=== PATIENT | male | born 1970 | race Caucasian/White ===

== ENCOUNTER 2016-09-10 07:18 | Emergency (ER) | payer BC ==
[2016-09-10] MEDS ORDERED: Sodium Chloride 0.9% 10 ML Syringe FLUSH PRN (07:48)
--- NOTE | 2016-09-10 08:41 | EDM.PDOC ---
ED HPI GENERAL MEDICAL PROBLEM - General Chief Complaint: Neurological Problem Stated Complaint: DIZZY Time Seen by Provider: 09/10/16 07:34 Source of Information: Reports: Patient, RN Notes Reviewed - History of Present Illness INITIAL COMMENTS - FREE TEXT/NARRATIVE: 46-year-old male comes in with generalized weakness and dizziness. This started 3 days ago at work. He feels lightheaded and dizzy and like he is about to pass out at times. He therefore only worked a few hours last Saturday 3 days ago and then went home. He has been resting over the weekend. He has continued to feel weak lightheaded and dizzy when standing or walking. He did go to work today and once again started feeling real lightheaded and dizzy. He therefore comes here for evaluation. No chest pain, occasional shortness of breath, no abdominal pain nausea vomiting or diarrhea. No melena or hematochezia. He does have history of coronary artery disease with CA about 5 years ago and what sounds like 5 vessel bypass. He states he is on multiple medications for his heart and for blood pressure. He has continued to take those medications as previously prescribed. - Related Data Allergies Allergy/AdvReac Type Severity Reaction Status Date / Time No Known Allergies Allergy Verified 09/10/16 07:30 Home Meds: Home Meds Lisinopril 20 mg PO BID #30 tablet 08/07/13 [Rx] amLODIPine [Norvasc] 10 mg PO BEDTIME #15 tab 08/07/13 [Rx] Carvedilol 25 mg PO BID 12/22/15 [History] Clopidogrel [Plavix] 75 mg PO DAILY 12/22/15 [History] Isosorbide Mononitrate [Imdur] 30 mg PO DAILY 12/22/15 [History] Simvastatin [Zocor] 10 mg PO DAILY 12/22/15 [History] metFORMIN [Glucophage XR] 500 mg PO DAILY 12/22/15 [History] Aspirin [Halfprin] 81 mg PO DAILY 09/10/16 [History] Furosemide 20 mg PO BID 09/10/16 [History] Nitroglycerin [Nitrostat] 0.4 mg PO ASDIRECTED PRN 09/10/16 [History] Past Medical History Cardiovascular History: Reports: Bypass, Hypertension, CA Endocrine/Metabolic History: Reports: Diabetes, Type II Social & Family History - Tobacco Use Smoking Status *Q: Former Smoker Used Tobacco, but Quit: Yes Month Tobacco Last Used: june - Caffeine Use Caffeine Use: Reports: None - Alcohol Use Days Per Week of Alcohol Use: 0 - Recreational Drug Use Recreational Drug Use: No Drug Use in Last 12 Months: Yes Recreational Drug Type: Reports: Methamphetamine Recreational Drug Use Frequency: Not Used In Over 6 Months ED ROS GENERAL - Review of Systems Review Of Systems: See Below Constitutional: Denies: Fever, Chills, Diaphoresis HEENT: Denies: Sinus Problem, Throat Pain Respiratory: Reports: Shortness of Breath. Denies: Pleuritic Chest Pain, Cough Cardiovascular: Reports: Lightheadedness. Denies: Chest Pain, Syncope GI/Abdominal: Denies: Abdominal Pain, Diarrhea, Hematochezia, Melena, Nausea, Vomiting : Reports: No Symptoms Musculoskeletal: Reports: No Symptoms Skin: Reports: No Symptoms Neurological: Reports: Dizziness. Denies: Numbness, Tingling ED EXAM, DIZZINESS - Physical Exam Exam: See Below General Appearance: Alert, No Apparent Distress Eye Exam: Bilateral Eye: PERRL Throat/Mouth: Normal Inspection, Normal Oropharynx Head Exam: Atraumatic. No: Facial Swelling Neck: Supple, Full Range of Motion Respiratory/Chest: No Respiratory Distress, Lungs Clear, Normal Breath Sounds Cardiovascular: Regular Rate, Rhythm GI/Abdominal: Soft, Non-Tender. No: Guarding, Rebound Neurological: Alert, No Motor/Sensory Deficits, Oriented x 3 Back Exam: No: CVA Tenderness (L), CVA Tenderness (R) Extremities: Normal Inspection. No: Pedal Edema, Leg Pain Skin Exam: Warm, Dry, Normal Color EKG INTERPRETATION EKG Date: 09/10/16 Rhythm: NSR [place]: Normal P-Wave: Present QRS: Other (Q waves V2, mild ST elevation in V2, mild ST depression V4, 5 and 6) ST-T: Other (T-wave depressed aVL) Course - Vital Signs Last Recorded V/S: Last Vital Signs Temp 97.1 F 09/10/16 07:26 Pulse 70 09/10/16 10:08 Resp 12 09/10/16 07:26 BP 116/70 09/10/16 10:08 Pulse Ox 100 09/10/16 10:08 - Orders/Labs/Meds Orders: Active Orders 24 hr Category Date Time Status EKG 12 Lead [EKG Documentation Completion] [RC] STAT Care 09/10/16 07:49 Active Peripheral IV Care [RC] . DIRECTED Care 09/10/16 07:49 Active Peripheral IV Insertion Adult [OM.PC] Stat Oth 09/10/16 07:49 Ordered Labs: Laboratory Tests 09/10/16 09/10/16 09/10/16 Range/Units 07:38 08:09 08:09 WBC 10.35 H (4.23-9.07) K/mm3 RBC 5.31 (4.63-6.08) M/mm3 Hgb 15.9 (13.7-17.5) gm/L Hct 45.7 (40.1-51.0) % MCV 86.1 (79.0-92.2) fl MCH 29.9 (25.7-32.2) pg MCHC 34.8 (32.2-35.5) g/dl RDW Std Deviation 43.5 (35.1-43.9) fL Plt Count 345 H (163-337) K/mm3 MPV 10.5 (9.4-12.3) fl Neut % (Auto) 75.4 H (34.0-67.9) % Lymph % (Auto) 13.2 L (21.8-53.1) % [place] % (Auto) 8.4 (5.3-12.2) % Eos % (Auto) 2.5 (0.8-7.0) Baso % (Auto) 0.3 (0.1-1.2) % Neut # (Auto) 7.80 H (1.78-5.38) K/mm3 Lymph # (Auto) 1.37 (1.32-3.57) K/mm3 [place] # (Auto) 0.87 H (0.30-0.82) K/mm3 Eos # (Auto) 0.26 (0.04-0.54) K/mm3 Baso # (Auto) 0.03 (0.01-0.08) K/mm3 Sodium 141 (136-145) mEq/L Potassium 3.6 (3.5-5.1) mEq/L Chloride 105 (98-107) mEq/L Carbon Dioxide 25 (21-32) mEq/L Anion Gap 14.6 (5-15) BUN 19 H (7-18) mg/dL Creatinine 2.0 H (0.7-1.3) mg/dL Est Cr Clr Drug Dosing 46.64 mL/min Estimated GFR (MDRD) 36 (>60) mL/min BUN/Creatinine Ratio 9.5 L (14-18) Glucose 157 H (74-106) mg/dL POC Glucose 167 H (70-105) mg/dL Calcium 9.0 (8.5-10.1) mg/dL Total Bilirubin 0.6 (0.2-1.0) mg/dL AST 11 L (15-37) U/L ALT 26 (16-63) U/L Alkaline Phosphatase 78 (46-116) U/L Troponin I 0.053 (0.00-0.056) ng/mL Total Protein 6.8 (6.4-8.2) g/dl Albumin 3.5 (3.4-5.0) g/dl Globulin 3.3 gm/dL Albumin/Globulin Ratio 1.1 (1-2) Meds: Medications Discontinued Medications Generic Name Dose Route Start Last Admin Trade Name Freq PRN Reason Stop Dose Admin Sodium Chloride 1,000 mls @ 999 mls/hr 09/10/16 08:45 09/10/16 08:47 Normal Saline IV 999 mls/hr ONETIME BRIGITTE Administration Sodium Chloride 1,000 mls @ 999 mls/hr 09/10/16 08:45 09/10/16 08:51 Normal Saline IV 999 mls/hr ONETIME BRIGITTE Administration Sodium Chloride 10 ml 09/10/16 07:48 09/10/16 08:53 Saline Flush FLUSH 10 ml ASDIRECTED PRN Administration Keep Vein Open - Re-Assessments/Exams Free Text/Narrative Re-Assessment/Exam: 09/10/16 10:30. Blood pressure is improved to 110 and 120 systolic after 2 L of normal saline over the past couple of hours. Chest x-ray did show cardiomegaly, stable from prior chest x-ray on record per radiologist report. Labs show a creatinine today of 2.0 which is an elevation from his baseline. Discussed this with Dr. Wells his regular medical provider. Like he has not been showing up for clinic appointments over this past year or so. She will be able to see him tomorrow morning at 10:00. I am going to have him hold a couple of his meds this evening. Discharge instructions as documented Departure - Departure Time of Disposition: 10:05 Disposition: Home, Self-Care 01 Condition: Fair Clinical Impression: Renal insufficiency Hypotension Qualifiers: Hypotension type: unspecified hypotension type Qualified Code(s): I95.9 - Hypotension, unspecified Cardiomyopathy Qualifiers: Cardiomyopathy type: unspecified Qualified Code(s): I42.9 - Cardiomyopathy, unspecified - Discharge Information Instructions: Cardiomyopathy, Hypotension, [id number] Referrals: Jeannie Wells MD [Primary Care Provider] - Forms: ED Department Discharge, ED Return to Work/School Form Additional Instructions: Do not take your lisinopril tonight and also do not take your Norvasc this evening. All of your other prescribed medications this evening and tomorrow morning as usual. You have an appointment to see Dr. Wells tomorrow morning. Present to the clinic at 9:30 for that appointment. Do not work today or tomorrow. Return to ED if symptoms worsening in any way. - My Orders Last 24 Hours: My Active Orders 09/10/16 07:49 EKG 12 Lead [EKG Documentation Completion] [RC] STAT Peripheral IV Care [RC] . DIRECTED Peripheral IV Insertion Adult [OM.PC] Stat - Assessment/Plan Last 24 Hours: My Active Orders 09/10/16 07:49 EKG 12 Lead [EKG Documentation Completion] [RC] STAT Peripheral IV Care [RC] . DIRECTED Peripheral IV Insertion Adult [OM.PC] Stat
[2016-09-10] MEDS ORDERED: Sodium Chloride 0.9% 1,000 ML IV SCH ×2 (08:45)
--- NOTE | 2016-09-10 08:55 | CR ---
Chest: Portable view of the chest was obtained. Comparison: Previous chest x-ray of 12/22/15. Heart is enlarged. This is stable from previous exam. Sternotomy wires are seen one of which appears fractured which is stable. Lungs are clear. No acute infiltrates are seen. Bony structures are grossly intact. Impression: 1. Stable cardiomegaly. Nothing acute is appreciated on frontal chest x-ray. Diagnostic code #2
[2016-09-10 10:09] VITALS: BP 116/70
== END 2016-09-10 10:22 | disposition home or self-care (01) ==
LOC: JD.ED 07:18 → SUPCPDRO 07:18 → JD.ED 10:22
DX: I11.9 Hypertensive heart disease without heart failure (principal); N28.9 Disorder of kidney and ureter, unspecified; I95.9 Hypotension, unspecified; I25.2 Old myocardial infarction; E11.9 Type 2 diabetes mellitus without complications; I25.10 Atherosclerotic heart disease of native coronary artery without angina pectoris; Z87.891 Personal history of nicotine dependence; Z79.899 Other long term (current) drug therapy; Z79.82 Long term (current) use of aspirin; Z79.84 Long term (current) use of oral hypoglycemic drugs
CPT/HCPCS: 36415; 71010; 80053; 82962; 84484; 85025; 93005; 96360; 96361; 99285; J7040; J7050; 99284

== ENCOUNTER 2023-11-22 08:14 | Emergency (ER) | payer BC ==
[2023-11-22] MEDS ORDERED: Sodium Chloride 0.9% 10 ML Syringe FLUSH PRN (08:32)
[2023-11-22] MEDS: Benzonatate 100 MG Cap PO ONE (08:40)
[2023-11-22 09:00] LABS: BASOPHILS PERCENT AUTO 0.2 % (0.0-1.0); EOSINOPHILS ABSOLUTE AUTO 0.1 K/mm3 (0.0-0.4); HEMATOCRIT 50.1 % (42.0-52.0); HEMOGLOBIN 16.8 gm/dl (14.0-18.0); IMMATURE GRAN ABSOLUTE AUTO 0.09 K/mm3 (0.00-0.05); IMMATURE GRAN PERCENT AUTO 0.7 % (0.0-0.4); LYMPHOCYTES ABSOLUTE AUTO 0.9 K/mm3 (1.0-4.8); LYMPHOCYTES PERCENT AUTO 7.1 % (24.0-44.0); MEAN CORPUSCULAR HEMOGLOBIN 30.9 pg (28.0-32.0); MEAN CORPUSCULAR HGB CONC 33.5 g/dl (32.0-36.0); MEAN CORPUSCULAR VOLUME 92.3 fl (83.0-99.0); MEAN PLATELET VOLUME 10.2 fl (9.4-12.4); MONOCYTES ABSOLUTE AUTO 0.9 K/mm3 (0.0-0.8); NEUTROPHILS ABSOLUTE AUTO 10.4 K/mm3 (1.8-7.7); PLATELET COUNT,PLT 238 K/mm3 (150-400); RED BLOOD CELL COUNT 5.43 M/mm3 (4.52-5.90); WHITE BLOOD CELL COUNT,WBC 12.38 K/mm3 (3.9-11.3)
[2023-11-22 09:25] LABS: A/G RATIO 0.9 (1-2); ALBUMIN 3.6 g/dl (3.4-5.0); BILIRUBIN TOTAL 0.6 mg/dL (0.2-1.0); BUN/CREATININE RATIO 16.9 (14-18); CALCIUM 9.7 mg/dL (8.5-10.1); CREATININE 1.3 mg/dL (0.7-1.3); EST CRCL DRUG DOSING (CG) 66.29 mL/min; PROTEIN TOTAL,TP 7.7 g/dl (6.4-8.2)
[2023-11-22 09:42] LABS: CORONAVIRUS COVID-19 NAA NEGATIVE (NEGATIVE); INFLUENZA A NAA NEGATIVE (NEGATIVE); RESPIRATORY SYNCYTIAL VIR NAA NEGATIVE (NEGATIVE)
[2023-11-22 13:14] VITALS: BP 158/82; PULSE 69
== END 2023-11-22 13:13 | disposition home or self-care (01) ==
LOC: JD.ED 08:14
DX: J06.9 Acute upper respiratory infection, unspecified (principal); R07.9 Chest pain, unspecified; H92.02 Otalgia, left ear; I10 Essential (primary) hypertension; I25.2 Old myocardial infarction; E11.9 Type 2 diabetes mellitus without complications; Z79.84 Long term (current) use of oral hypoglycemic drugs; Z79.82 Long term (current) use of aspirin; Z79.899 Other long term (current) drug therapy
CPT/HCPCS: 0241U; 36415; 71045; 71045-26; 80053; 84484; 85025; 93005; 99285

== ENCOUNTER 2024-04-10 09:12 | Inpatient (IN) | payer BC ==
[2024-04-10 11:49] LABS: BASOPHILS PERCENT AUTO 0.3 % (0.0-1.0); EOSINOPHILS PERCENT AUTO 0.3 % (0.0-6.0); HEMATOCRIT 47.5 % (42.0-52.0); IMMATURE GRAN ABSOLUTE AUTO 0.04 K/mm3 (0.00-0.05); IMMATURE GRAN PERCENT AUTO 0.3 % (0.0-0.4); LYMPHOCYTES ABSOLUTE AUTO 1.6 K/mm3 (1.0-4.8); LYMPHOCYTES PERCENT AUTO 11.8 % (24.0-44.0); MEAN CORPUSCULAR HEMOGLOBIN 29.2 pg (28.0-32.0); MEAN CORPUSCULAR HGB CONC 31.6 g/dl (32.0-36.0); MEAN CORPUSCULAR VOLUME 92.4 fl (83.0-99.0); MEAN PLATELET VOLUME 10.1 fl (9.4-12.4); MONOCYTES ABSOLUTE AUTO 1.4 K/mm3 (0.0-0.8); MONOCYTES PERCENT AUTO 10.1 % (0.0-8.0); NEUTROPHILS ABSOLUTE AUTO 10.3 K/mm3 (1.8-7.7); NEUTROPHILS PERCENT AUTO 77.2 % (41.0-71.0); RED BLOOD CELL COUNT 5.14 M/mm3 (4.52-5.90); WHITE BLOOD CELL COUNT,WBC 13.39 K/mm3 (3.9-11.3)
[2024-04-10 11:57] LABS: PLATELET COUNT,PLT 360 K/mm3 (150-400)
[2024-04-10 12:18] LABS: A/G RATIO 0.9 (1-2); ALBUMIN 3.4 g/dl (3.4-5.0); ANION GAP 18.1 (5-15); BILIRUBIN TOTAL 2.2 mg/dL (0.2-1.0); BUN/CREATININE RATIO 16.8 (14-18); CALCIUM 10.1 mg/dL (8.5-10.1); CREATININE 2.5 mg/dL (0.7-1.3); EST CRCL DRUG DOSING (CG) 34.47 mL/min; POTASSIUM,K 5.1 mEq/L (3.5-5.1); PROTEIN TOTAL,TP 7.2 g/dl (6.4-8.2)
[2024-04-10] MEDS: Sodium Chloride 0.9% 1,000 ML IV SCH (18:11)
[2024-04-10] MEDS: Heparin Sodium 5,000 Units/ML Vial SUBCUT SCH (18:11)
[2024-04-10] MEDS: Sodium Chloride 0.9% 1,000 ML IV STA (18:23)
[2024-04-10] MEDS: Acetaminophen 325 MG Tab PO PRN (21:53)
[2024-04-10] MEDS: Lisinopril 20 MG Tab PO SCH (21:54)
[2024-04-10] MEDS: Metoprolol Succinate 50 MG Tab.ER PO SCH (21:54)
[2024-04-11 06:56] LABS: APPEARANCE,URINE CLEAR (Clear); BILIRUBIN,URINE NEGATIVE (Negative); COLOR,URINE YELLOW (Yellow); GLUCOSE,URINE NEGATIVE (Negative); KETONES,URINE NEGATIVE (Negative); LEUKOCYTE ESTERASE,URINE NEGATIVE (Negative); NITRITE,URINE NEGATIVE (Negative); OCCULT BLOOD,URINE NEGATIVE (Negative); PH,URINE 5.5 (5.0-8.0); PROTEIN,URINE TRACE (Negative)
[2024-04-11 07:52] LABS: A/G RATIO 0.9 (1-2); ANION GAP 13.8 (5-15); BILIRUBIN TOTAL 1.9 mg/dL (0.2-1.0); BUN/CREATININE RATIO 21.9 (14-18); CALCIUM 9.4 mg/dL (8.5-10.1); CREATININE 2.1 mg/dL (0.7-1.3); EST CRCL DRUG DOSING (CG) 41.04 mL/min; POTASSIUM,K 4.8 mEq/L (3.5-5.1); PROTEIN TOTAL,TP 6.5 g/dl (6.4-8.2)
[2024-04-11 07:53] LABS: RBC,URINE NOT SEEN /hpf (0-5)
[2024-04-11 07:54] LABS: BACTERIA,URINE NOT SEEN /hpf (FEW); MUCUS,URINE NOT SEEN /hpf (FEW); SQUAMOUS EPITHELIAL CELLS,UR 0-5 /hpf (0-5); WBC,URINE 0-5 /hpf (0-5)
[2024-04-11] MEDS: Furosemide 40 MG Tab PO SCH (10:27)
[2024-04-11] MEDS: Aspirin 81 MG Tab.EC PO SCH (10:27)
[2024-04-11] MEDS: FLUoxetine 20 MG Cap PO SCH (10:27)
[2024-04-11] MEDS: ARIPiprazole 5 MG Tab PO SCH (10:27)
[2024-04-11] MEDS: Clopidogrel 75 MG Tab PO SCH (10:27)
[2024-04-11] MEDS: Rosuvastatin 10 MG Tab PO SCH (10:27)
[2024-04-11] MEDS: Insulin Lispro 100 Unit/ML 3 ML KwikPen SUBCUT SCH (14:48)
[2024-04-12 06:03] LABS: A/G RATIO 0.8 (1-2); ANION GAP 15.2 (5-15); BILIRUBIN TOTAL 1.8 mg/dL (0.2-1.0); CALCIUM 9.7 mg/dL (8.5-10.1); EST CRCL DRUG DOSING (CG) 43.09 mL/min; POTASSIUM,K 4.2 mEq/L (3.5-5.1); PROTEIN TOTAL,TP 6.7 g/dl (6.4-8.2)
[2024-04-12 08:31] LABS: HEPATITIS C AB NON-REACTIVE (Non-React)
[2024-04-12] MEDS: LORazepam 2 MG/ML SDV IVPUSH PRN (22:22)
[2024-04-13 06:09] LABS: INR 1.46; PROTHROMBIN TIME 15.1 SECONDS (9.7-12.0)
[2024-04-13 06:29] LABS: A/G RATIO 0.8 (1-2); ALBUMIN 2.9 g/dl (3.4-5.0); BILIRUBIN TOTAL 1.3 mg/dL (0.2-1.0); BUN/CREATININE RATIO 31.6 (14-18); CALCIUM 9.4 mg/dL (8.5-10.1); CREATININE 1.9 mg/dL (0.7-1.3); EST CRCL DRUG DOSING (CG) 45.36 mL/min; PROTEIN TOTAL,TP 6.5 g/dl (6.4-8.2)
[2024-04-13] MEDS: Metoprolol Succinate 50 MG Tab.ER PO SCH (09:37)
[2024-04-13] MEDS ORDERED: Docusate Sodium 100 MG Cap PO PRN (17:45)
[2024-04-13] MEDS: Albuterol 0.083% 2.5 MG/3 ML Neb Soln NEB ONE (17:56)
[2024-04-13] MEDS: Polyethylene Glycol 3350 Powder 17 GM Packet PO SCH (17:59)
[2024-04-13] MEDS ORDERED: Metoprolol Succinate 50 MG Tab.ER PO SCH (21:00)
[2024-04-14 04:57] LABS: INR 1.54; PROTHROMBIN TIME 15.9 SECONDS (9.7-12.0)
[2024-04-14 05:25] LABS: A/G RATIO 0.8 (1-2); ALBUMIN 2.7 g/dl (3.4-5.0); ANION GAP 15.3 (5-15); BILIRUBIN TOTAL 1.3 mg/dL (0.2-1.0); BUN/CREATININE RATIO 32.8 (14-18); CALCIUM 9.3 mg/dL (8.5-10.1); CREATININE 1.8 mg/dL (0.7-1.3); EST CRCL DRUG DOSING (CG) 47.88 mL/min; POTASSIUM,K 4.3 mEq/L (3.5-5.1); PROTEIN TOTAL,TP 5.9 g/dl (6.4-8.2)
[2024-04-14 11:17] VITALS: BP 142/92; PULSE 62
== END 2024-04-14 12:41 | disposition home or self-care (01) | DRG 812 ==
LOC: JD.ED 09:12 → JD.MS 15:32
PROVIDERS: ADMIT Family Medicine; ATTEND Internal Medicine
DX: T43.621A Poisoning by amphetamines, accidental (unintentional), initial encounter (principal); I13.0 Hypertensive heart and chronic kidney disease with heart failure and stage 1 through stage 4 chronic kidney disease, or unspecified chronic kidney disease; J96.01 Acute respiratory failure with hypoxia; I50.41 Acute combined systolic (congestive) and diastolic (congestive) heart failure; I21.A1 Myocardial infarction type 2; N17.9 Acute kidney failure, unspecified; E11.22 Type 2 diabetes mellitus with diabetic chronic kidney disease; I25.10 Atherosclerotic heart disease of native coronary artery without angina pectoris; N18.9 Chronic kidney disease, unspecified; E78.00 Pure hypercholesterolemia, unspecified; F17.210 Nicotine dependence, cigarettes, uncomplicated; F15.10 Other stimulant abuse, uncomplicated; I42.7 Cardiomyopathy due to drug and external agent; K71.9 Toxic liver disease, unspecified; E11.621 Type 2 diabetes mellitus with foot ulcer; L97.529 Non-pressure chronic ulcer of other part of left foot with unspecified severity; F41.8 Other specified anxiety disorders; I25.5 Ischemic cardiomyopathy; R74.01 Elevation of levels of liver transaminase levels; Z95.1 Presence of aortocoronary bypass graft; Z86.16 Personal history of COVID-19; I25.2 Old myocardial infarction; Z95.5 Presence of coronary angioplasty implant and graft; Z79.02 Long term (current) use of antithrombotics/antiplatelets; Z79.899 Other long term (current) drug therapy; Z71.6 Tobacco abuse counseling
CPT/HCPCS: 36415; 71045; 71045-26; 71046; 71046-26; 76705; 76705-26; 80053; 80143; 81001; 82140; 82947; 83880; 84484; 85025; 85610; 86803; 87428-QW; 93005; 93010; 93971-26-RT; 93971-RT; 94640; 94760; 99223; 99285; A9270-GY; J1644; J1815; J2060; J7030; J7613-GY

== ENCOUNTER 2024-07-27 16:07 | Emergency (ER) | payer BC ==
[2024-07-27] MEDS ORDERED: Sodium Chloride 0.9% 10 ML Syringe FLUSH PRN (16:40)
[2024-07-27 16:49] LABS: BASOPHILS PERCENT AUTO 0.4 % (0.0-1.0); EOSINOPHILS ABSOLUTE AUTO 0.1 K/mm3 (0.0-0.4); EOSINOPHILS PERCENT AUTO 0.6 % (0.0-6.0); HEMATOCRIT 51.2 % (42.0-52.0); HEMOGLOBIN 15.6 gm/dl (14.0-18.0); IMMATURE GRAN ABSOLUTE AUTO 0.03 K/mm3 (0.00-0.05); IMMATURE GRAN PERCENT AUTO 0.3 % (0.0-0.4); LYMPHOCYTES ABSOLUTE AUTO 1.1 K/mm3 (1.0-4.8); LYMPHOCYTES PERCENT AUTO 10.9 % (24.0-44.0); MEAN CORPUSCULAR HEMOGLOBIN 25.7 pg (28.0-32.0); MEAN CORPUSCULAR HGB CONC 30.5 g/dl (32.0-36.0); MEAN CORPUSCULAR VOLUME 84.5 fl (83.0-99.0); MEAN PLATELET VOLUME 9.9 fl (9.4-12.4); MONOCYTES PERCENT AUTO 10.3 % (0.0-8.0); NEUTROPHILS ABSOLUTE AUTO 7.5 K/mm3 (1.8-7.7); NEUTROPHILS PERCENT AUTO 77.5 % (41.0-71.0); NRBC ABSOLUTE 0.03 (0.00-0.02); NRBC PERCENT 0.3 % (0.0-0.2); PLATELET COUNT,PLT 330 K/mm3 (150-400); RED BLOOD CELL COUNT 6.06 M/mm3 (4.52-5.90); WHITE BLOOD CELL COUNT,WBC 9.73 K/mm3 (3.9-11.3)
[2024-07-27] MEDS ORDERED: Sodium Chloride 0.9% 100 ML IV SCH (17:00)
[2024-07-27] MEDS: Iopamidol 755 Mg/ML 100 ML Bottle IVPUSH ONE (17:03)
[2024-07-27 17:10] LABS: ALBUMIN 3.8 g/dl (3.4-5.0); ANION GAP 13.9 (5-15); BILIRUBIN TOTAL 2.5 mg/dL (0.2-1.0); BUN/CREATININE RATIO 17.7 (14-18); CREATININE 2.2 mg/dL (0.7-1.3); EST CRCL DRUG DOSING (CG) 38.71 mL/min; MAGNESIUM 2.6 mg/dL (1.8-2.4); POTASSIUM,K 3.9 mEq/L (3.5-5.1); PROTEIN TOTAL,TP 7.6 g/dl (6.4-8.2)
[2024-07-27 17:31] LABS: INR 1.19; PROTHROMBIN TIME 12.5 SECONDS (9.7-12.0)
[2024-07-27 17:33] LABS: PTT,PARTIAL THROMBOPLSTIN TIME 25.6 SECONDS (21.7-31.4)
[2024-07-27] MEDS: Furosemide 40 MG/4 ML VIAL IVPUSH ONE (21:30)
[2024-07-28 02:01] VITALS: BP 138/82; PULSE 86
== END 2024-07-28 00:10 ==
LOC: JD.ED 16:07
DX: I13.0 Hypertensive heart and chronic kidney disease with heart failure and stage 1 through stage 4 chronic kidney disease, or unspecified chronic kidney disease (principal); I50.9 Heart failure, unspecified; N18.9 Chronic kidney disease, unspecified; J90 Pleural effusion, not elsewhere classified; R79.89 Other specified abnormal findings of blood chemistry; N17.9 Acute kidney failure, unspecified; I25.10 Atherosclerotic heart disease of native coronary artery without angina pectoris; E11.22 Type 2 diabetes mellitus with diabetic chronic kidney disease; E78.00 Pure hypercholesterolemia, unspecified; I25.2 Old myocardial infarction; Z86.16 Personal history of COVID-19; Z95.5 Presence of coronary angioplasty implant and graft; Z79.82 Long term (current) use of aspirin; Z79.899 Other long term (current) drug therapy
CPT/HCPCS: 36415; 71045; 71275; 80053; 83735; 83880; 84484; 85025; 85610; 85730; 93005; 96374; 99284; J1938; Q9967; 93010; 99285